=== PATIENT | male | born 1960 | race African-American/Black ===

== ENCOUNTER 2018-04-23 03:04 | Emergency (ER) | payer MEDICAID, OTHER ==
[~2018-04-23] VITALS: Ht 172.7 cm; Wt 80.0 kg
[~2018-04-23 03:04] MED LIST: AMIO100T2; ATOR20TA; LISI-650; METO25TA6; PRAS5TAB3; glipizide
[2018-04-23 08:08] VITALS: BP 120/72
== END 2018-04-23 08:11 | disposition home or self-care (01) ==
LOC: ER 03:04
DX: S83.91XA Sprain of unspecified site of right knee, initial encounter (principal); V87.8XXA Person injured in other specified noncollision transport accidents involving motor vehicle (traffic), initial encounter; Y93.89 Activity, other specified; Y92.89 Other specified places as the place of occurrence of the external cause; Y99.8 Other external cause status; E11.9 Type 2 diabetes mellitus without complications; I25.2 Old myocardial infarction; Z98.890 Other specified postprocedural states; Z79.899 Other long term (current) drug therapy
CPT/HCPCS: 73562; 99283